=== PATIENT | female | born 1990 | race Hispanic/Latino ===

== ENCOUNTER 2018-10-17 20:21 | Emergency (ER) | payer OTHER ==
[2018-10-17 20:49] LABS: APPEARANCE,URINE Cloudy (CLEAR); BILIRUBIN,URINE Negative (NEGATIVE); COLOR,URINE Yellow (YELLOW); GLUCOSE, URINE (UA) Negative (NEGATIVE); KETONES,URINE Negative (NEGATIVE); LEUKOCYTE ESTERASE ,URINE Moderate (NEGATIVE); NITRATE,URINE Positive (NEGATIVE); OCCULT BLOOD,URINE Negative (NEGATIVE); PROTEIN,URINE Negative (NEGATIVE)
[2018-10-17 21:22] LABS: SQUAMOUS EPITHELIAL CELL,UR 50-100 /HPF (0-2)
[2018-10-17 21:24] LABS: BACTERIA,URINE Moderate /HPF (None Seen)
[2018-10-17 21:27] LABS: MUCUS,URINE Few LPF (None Seen)
[2018-10-17] MEDS ORDERED: KETOROLAC TROMETHAMINE 60 MG/2 ML VIAL ONE (21:52)
[2018-10-17] MEDS ORDERED: ORPHENADRINE CITRATE 30 MG/ML ML ONE (21:52)
== END 2018-10-17 22:47 | disposition home or self-care (01) ==
LOC: EDH 20:21
DX: S46.812A Strain of other muscles, fascia and tendons at shoulder and upper arm level, left arm, initial encounter (principal); S70.02XA Contusion of left hip, initial encounter; Z98.890 Other specified postprocedural states; V89.2XXA Person injured in unspecified motor-vehicle accident, traffic, initial encounter; Y93.89 Activity, other specified; Y92.410 Unspecified street and highway as the place of occurrence of the external cause; Y99.8 Other external cause status
CPT/HCPCS: 81001; 81025; 96372 ×2; 99285; J1885; J2360